=== PATIENT | female | born 1945 | race Two or more races ===

== ENCOUNTER 2017-11-28 15:18 | Outpatient (RCR) | payer MEDICARE, MEDICAID | END 2017-12-04 | disposition home or self-care (01) | LOC: WCC 15:18 | DX: L97.518 Non-pressure chronic ulcer of other part of right foot with other specified severity (principal); L97.512 Non-pressure chronic ulcer of other part of right foot with fat layer exposed; L97.513 Non-pressure chronic ulcer of other part of right foot with necrosis of muscle; E11.43 Type 2 diabetes mellitus with diabetic autonomic (poly)neuropathy; E11.621 Type 2 diabetes mellitus with foot ulcer; Z89.422 Acquired absence of other left toe(s); E11.9 Type 2 diabetes mellitus without complications; I10 Essential (primary) hypertension; Z83.3 Family history of diabetes mellitus | CPT/HCPCS: G0463 ==